=== PATIENT | female | born 1970 | race Two or more races ===

== ENCOUNTER → 2024-05-24 | Outpatient (CLI) | payer MEDICAID, SELFPAY ==
--- NOTE | 2024-05-24 08:45 | XR_ITS ---
Examination: Breast ultrasound, unilateral, left Date and time of exam: May 24, 2024 0902 hours INDICATIONS: Mammogram November 16, 2023 8 mm nodule retroareolar left breast Technique: Real-time wiggins scale ultrasonographic imaging performed left breast including all 4 quadrants as well as nipple retroareolar and axillary region. Findings: 12:00 circumscribed oval mass 5 x 5 mm 2:00 cyst 10 x 11 mm 2:00 oval mass lobular margins 10 x 10 mm 4:00 cyst or edema 14 mm IMPRESSION: BI-RADS Category 3: Probably benign findings One additional 6 month left breast sonogram follow-up is needed to document stability of nodules described above
--- NOTE | 2024-05-24 09:15 | XR_ITS ---
Examination: Diagnostic digital mammography, unilateral, left Computer aided detection 3-D breast Tomosynthesis, unilateral Date and time of exam: May 24, 2024 0916 hours INDICATIONS: Mammogram November 16, 2023 18 mm nodule nipple level left breast CC view Technique: Nonmagnified MLO, CC views of the left breast have been obtained, reconstructed from 3-D Tomosynthesis images. R2 computer aided detection program utilized for evaluation of suspicious masses and/or abnormal calcifications. 3-D Tomosynthesis images obtained. Findings: The breasts are heterogeneously dense, which may obscure small masses Circumscribed 10 mm oval mass retroareolar region left breast Impression: BI-RADS category 3: Probably benign findings One additional 6 month left mammogram follow-up is needed
== END | disposition home or self-care (01) ==
LOC: CDIM 08:41
PROVIDERS: Referring Provider Specialist; Visit Provider Specialist
DX: R92.332 Mammographic heterogeneous density, left breast (principal); N60.02 Solitary cyst of left breast
CPT/HCPCS: 76641; 77061; 77065; G0279

== ENCOUNTER → 2024-12-02 | Outpatient (CLI) | payer MEDICAID, SELFPAY ==
--- NOTE | 2024-12-02 13:00 | XR_ITS ---
Examination: Breast ultrasound, unilateral, left complete Date and time of exam: December 02, 2024, 1315 hours INDICATIONS: Mammogram May 24, 2024 10 mm nodule retroareolar region left breast, left breast sonogram May 24, 2024 benign cysts Technique: Real-time wiggins scale ultrasonographic imaging performed left breast including all 4 quadrants as well as nipple retroareolar and axillary region. Findings: Sonographic images left breast Multiple benign cysts 2:00 circumscribed nodule 9 x 10 mm IMPRESSION: BI-RADS Category 3: Probably benign findings One additional 6 month left breast sonogram follow-up is needed to document stability of 2:00 nodule described above.
--- NOTE | 2024-12-02 13:30 | XR_ITS ---
Examination: Diagnostic digital mammography, unilateral, left Computer aided detection 3-D breast Tomosynthesis, unilateral Date and time of exam: 12/02/2024, 1:25 PM Comparisons: April 2022 through May 2024 Indications: Follow-up evaluation of probably benign nodule Technique: Nonmagnified MLO, CC views of the left breast have been obtained, reconstructed from 3-D Tomosynthesis images. R2 computer aided detection program utilized for evaluation of suspicious masses and/or abnormal calcifications. 3-D Tomosynthesis images obtained. Technologist: Findings: The breasts are heterogeneously dense, which may obscure small masses. Multiple stable benign-appearing masses. No evidence of abnormal masses or suspicious calcifications. Impression: BI-RADS category 2: Benign findings Recommend 1 year follow-up mammogram
== END | disposition home or self-care (01) ==
LOC: CDIM 12:52
PROVIDERS: Referring Provider Specialist; Visit Provider Specialist
DX: R92.322 Mammographic fibroglandular density, left breast (principal); N63.21 Unspecified lump in the left breast, upper outer quadrant
CPT/HCPCS: 76641; 77061; 77065; G0279